=== PATIENT | female | born 1990 | race Caucasian/White ===

== ENCOUNTER 2017-08-23 15:22 | Emergency (ER) | payer MEDICAID ==
[2017-08-23] MEDS ORDERED: HYDROmorphone 0.5 MG/0.5 ML Syringe IVPUSH ONE (16:17)
[2017-08-23] MEDS ORDERED: Ondansetron 4 MG/2 ML SDV IVPUSH ONE (16:17)
--- NOTE | 2017-08-23 16:23 | EDM.PDOC ---
ED HPI GENERAL MEDICAL PROBLEM - General Chief Complaint: Abdominal Pain Stated Complaint: RI SIDE PAIN TEMP NAUSEA Time Seen by Provider: 08/23/17 16:10 Source of Information: Reports: Patient, Old Records History Limitations: Reports: No Limitations - History of Present Illness INITIAL COMMENTS - FREE TEXT/NARRATIVE: 27 yo female here with RLQ abdominal pain that began this morning and has progressed. Has nausea. No fever. Pain worse with movement. No hx of any abdominal surgeries. Has a pHx of ovarian cyst. No sexual activity since 07/20, has had periods since then. Onset: Today Onset Date: 08/23/17 Onset Time: 09:00 Duration: Hour(s): Location: Reports: Abdomen (RLQ) Quality: Reports: Ache Severity: Moderate Improves with: Reports: Rest Worsens with: Reports: Movement Context: Reports: Other (hx of cysts on ovary) Associated Symptoms: Reports: Nausea/Vomiting (no vomiting). 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: Reports: Other (see below) (none) Right Lower Abdomen Pain Score (Numeric/FACES): 8 - Related Data Allergies Allergy/AdvReac Type Severity Reaction Status Date / Time amoxicillin Allergy Rash Verified 08/23/17 16:05 Penicillins Allergy Rash Verified 08/23/17 16:04 Sulfa (Sulfonamide Allergy Rash Verified 08/23/17 16:04 Antibiotics) Home Meds: Home Meds Cholecalciferol (Vitamin D3) [Vitamin D] 2,000 unit PO DAILY 08/23/17 [History] Erythromycin Base [Erythromycin 0.5% Ophth Oint] 1 cm TOP BEDTIME 08/23/17 [ History] Escitalopram Oxalate 20 mg PO DAILY 08/23/17 [History] Past Medical History HEENT History: Reports: Other (See Below) Other HEENT History: Strep Genitourinary History: Reports: UTI, Recurrent, Other (See Below) Other Genitourinary History: Just getting over a UTI 07/01/16 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: Reports: 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 Musculoskeletal History: Reports: Fracture Other Musculoskeletal History: Left wrist Neurological History: Reports: Migraines Psychiatric History: Reports: Anxiety Dermatologic History: Reports: Other (See Below) Other Dermatologic History: Pucture wound right hand on Clindamyacin 06/30/16 - Infectious Disease History Infectious Disease History: Reports: Chicken Pox Social & Family History - Family History Family Medical History: Unobtainable - Tobacco Use Smoking Status *Q: Never Smoker Second Hand Smoke Exposure: No - Caffeine Use Caffeine Use: Reports: Coffee, Soda - Alcohol Use Days Per Week of Alcohol Use: 0 - Recreational Drug Use Recreational Drug Use: No - Living Situation & Occupation Living situation: Reports: Single Occupation: Employed ED ROS GENERAL - Review of Systems Review Of Systems: See Below Constitutional: Reports: Decreased Appetite HEENT: Reports: No Symptoms Respiratory: Reports: No Symptoms Cardiovascular: Reports: No Symptoms GI/Abdominal: Reports: Abdominal Pain (RLQ), Decreased Appetite, Nausea. Denies : Black Stool, Bloody Stool, Constipation, Diarrhea, Hematemesis, Hematochezia, Vomiting : Reports: No Symptoms Musculoskeletal: Reports: No Symptoms Skin: Reports: No Symptoms ED EXAM, GI/ABD - Physical Exam Exam: See Below Exam Limited By: No Limitations General Appearance: Alert, WD/WN, No Apparent Distress, Obese Eyes: Bilateral: Normal Appearance Ears: Normal External Exam, Normal Canal, Hearing Grossly Normal Nose: Normal Inspection, Normal Mucosa, No Blood Throat/Mouth: Normal Inspection, Normal Lips, Normal Oropharynx, Normal Voice, No Airway Compromise Head: Atraumatic, Normocephalic Neck: Normal Inspection Respiratory/Chest: No Respiratory Distress, Lungs Clear, Normal Breath Sounds, No Accessory Muscle Use Cardiovascular: Regular Rate, Rhythm GI/Abdominal Exam: Soft, No Distention, Rebound, Tender (RLQ), Abnormal Bowel Sounds (decreased) Back Exam: Normal Inspection. No: CVA Tenderness (R), CVA Tenderness (L) Extremities: Normal Inspection, Non-Tender, No Pedal Edema Neurological: Alert, Oriented, CN II-XII Intact, Normal Cognition, No Motor/ Sensory Deficits Psychiatric: Normal Affect, Normal Mood Skin Exam: Warm, Dry, Intact, Normal Color, No Rash Lymphatic: No Adenopathy Course - Vital Signs Last Recorded V/S: Last Vital Signs Temp 37.6 C 08/23/17 16:15 Pulse 91 08/23/17 16:15 Resp 15 08/23/17 16:15 BP 122/68 08/23/17 16:15 Pulse Ox 97 08/23/17 16:15 - Orders/Labs/Meds Orders: Active Orders 24 hr Category Date Time Status BASIC METABOLIC PANEL,BMP [CHEM] Stat Lab 08/23/17 16:17 Ordered CBC W/O DIFF,HEMOGRAM [HEME] Stat Lab 08/23/17 16:17 Ordered CRP [C-REACTIVE PROTEIN] [CHEM] Stat Lab 08/23/17 16:17 Ordered UA W/MICROSCOPIC [URIN] Stat Lab 08/23/17 16:17 Uncollected HYDROmorphone [Dilaudid] Med 08/23/17 16:17 Once 0.5 mg IVPUSH ONETIME ONE Lactated Ringers @ 150 MLS/HR(1,000ml) Med 08/23/17 16:30 Ordered Lactated Ringers [Ringers, Lactated] 1,000 ml IV ASDIRECTED Ondansetron [Zofran] Med 08/23/17 16:17 Once 4 mg IVPUSH ONETIME ONE Departure - Discharge Information Referrals: PCP,None [Primary Care Provider] - - My Orders Last 24 Hours: My Active Orders 08/23/17 16:17 BASIC METABOLIC PANEL,BMP [CHEM] Stat CBC W/O DIFF,HEMOGRAM [HEME] Stat CRP [C-REACTIVE PROTEIN] [CHEM] Stat UA W/MICROSCOPIC [URIN] Stat HYDROmorphone [Dilaudid] 0.5 mg IVPUSH ONETIME ONE Ondansetron [Zofran] 4 mg IVPUSH ONETIME ONE 08/23/17 16:30 Lactated Ringers @ 150 MLS/HR(1,000ml) Lactated Ringers [Ringers, Lactated] 1, 000 ml IV ASDIRECTED - Assessment/Plan Last 24 Hours: My Active Orders 08/23/17 16:17 BASIC METABOLIC PANEL,BMP [CHEM] Stat CBC W/O DIFF,HEMOGRAM [HEME] Stat CRP [C-REACTIVE PROTEIN] [CHEM] Stat UA W/MICROSCOPIC [URIN] Stat HYDROmorphone [Dilaudid] 0.5 mg IVPUSH ONETIME ONE Ondansetron [Zofran] 4 mg IVPUSH ONETIME ONE 08/23/17 16:30 Lactated Ringers @ 150 MLS/HR(1,000ml) Lactated Ringers [Ringers, Lactated] 1, 000 ml IV ASDIRECTED
[2017-08-23] MEDS ORDERED: Lactated Ringers 1,000 ML IV SCH (16:30)
--- NOTE | 2017-08-23 17:33 | EDM.PDOC ---
ED HPI GENERAL MEDICAL PROBLEM - General Chief Complaint: Abdominal Pain Stated Complaint: RI SIDE PAIN TEMP NAUSEA Time Seen by Provider: 08/23/17 16:10 Source of Information: Reports: Patient, RN History Limitations: Reports: Other (Old records in [place], not immediately available) - History of Present Illness INITIAL COMMENTS - FREE TEXT/NARRATIVE: 27 yo female had a child of this year. Was dx with gallstones while . Now for the past few days has not felt well. Has had epigastric and RUQ pain since 0300h today. Not aware of fever. Has had recurrent vomiting. No change in stools. Not . Work up for her biliary dz was in [place]. Onset: Today Onset Date: 08/23/17 Onset Time: 03:00 Duration: Hour(s):, Constant Location: Reports: Abdomen Quality: Reports: Ache, Pressure Severity: Moderate Improves with: Reports: None Worsens with: Reports: None Context: Reports: Other (known gallstones, recent childbirth.) Associated Symptoms: Reports: Nausea/Vomiting. 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: Other (see below) (none) Right Lower Abdomen Pain Score (Numeric/FACES): 8 - Related Data Allergies Allergy/AdvReac Type Severity Reaction Status Date / Time amoxicillin Allergy Rash Verified 08/23/17 16:05 Penicillins Allergy Rash Verified 08/23/17 16:04 Sulfa (Sulfonamide Allergy Rash Verified 08/23/17 16:04 Antibiotics) Home Meds: Home Meds Cholecalciferol (Vitamin D3) [Vitamin D] 2,000 unit PO DAILY 08/23/17 [History] Erythromycin Base [Erythromycin 0.5% Ophth Oint] 1 cm TOP BEDTIME 08/23/17 [ History] Escitalopram Oxalate 20 mg PO DAILY 08/23/17 [History] Past Medical History HEENT History: Reports: Other (See Below) Other HEENT History: Strep Genitourinary History: Reports: UTI, Recurrent, Other (See Below) Other Genitourinary History: Just getting over a UTI 07/01/16 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 Musculoskeletal History: Reports: Fracture Other Musculoskeletal History: Left wrist Neurological History: Reports: Migraines Psychiatric History: Reports: Anxiety Dermatologic History: Reports: Other (See Below) Other Dermatologic History: Pucture wound right hand on Clindamyacin 06/30/16 - Infectious Disease History Infectious Disease History: Reports: Chicken Pox Social & Family History - Family History Family Medical History: Unobtainable - Tobacco Use Smoking Status *Q: Never Smoker Second Hand Smoke Exposure: No - Caffeine Use Caffeine Use: Reports: Coffee, Soda - Alcohol Use Days Per Week of Alcohol Use: 0 - Recreational Drug Use Recreational Drug Use: No - Living Situation & Occupation Living situation: Reports: Single Occupation: Employed ED ROS GENERAL - Review of Systems Review Of Systems: See Below Constitutional: Reports: Decreased Appetite HEENT: Reports: No Symptoms Respiratory: Reports: No Symptoms Cardiovascular: Reports: No Symptoms Endocrine: Reports: No Symptoms GI/Abdominal: Reports: Abdominal Pain, Decreased Appetite, Nausea, Vomiting. Denies: Black Stool, Bloody Stool, Constipation, Diarrhea, Hematochezia, Melena : Reports: No Symptoms Musculoskeletal: Reports: No Symptoms Skin: Reports: No Symptoms Neurological: Reports: No Symptoms Psychiatric: Reports: No Symptoms ED EXAM, GI/ABD - Physical Exam Exam: See Below Exam Limited By: No Limitations General Appearance: Alert, WD/WN, Mild Distress Eyes: Bilateral: Normal Appearance Ears: Normal External Exam, Normal Canal, Hearing Grossly Normal, Normal TMs Nose: Normal Inspection, Normal Mucosa, No Blood Throat/Mouth: Normal Inspection, Normal Lips, Normal Oropharynx, Normal Voice, No Airway Compromise Head: Atraumatic, Normocephalic Neck: Normal Inspection, Supple, Non-Tender Respiratory/Chest: No Respiratory Distress, Lungs Clear, Normal Breath Sounds GI/Abdominal Exam: Soft, No Distention, Tender (epigastrium mainly.), Abnormal Bowel Sounds (decreased.) Back Exam: Normal Inspection. No: CVA Tenderness (R), CVA Tenderness (L) Extremities: Normal Inspection, Normal Range of Motion, Non-Tender, No Pedal Edema Neurological: Alert, Oriented, CN II-XII Intact, Normal Cognition, No Motor/ Sensory Deficits Psychiatric: Normal Affect, Normal Mood Skin Exam: Warm, Dry, Intact, Normal Color, No Rash Lymphatic: No Adenopathy Course - Vital Signs Last Recorded V/S: Last Vital Signs Temp 37.6 C 08/23/17 16:51 Pulse 91 08/23/17 16:51 Resp 15 08/23/17 16:51 BP 122/68 08/23/17 16:51 Pulse Ox 97 08/23/17 16:51 - Orders/Labs/Meds Orders: Active Orders 24 hr Category Date Time Status Abdomen Ltd [US] Stat Exams 08/23/17 17:24 Ordered Ketorolac [Toradol] Med 08/23/17 17:53 Once 30 mg IVPUSH ONETIME ONE Lactated Ringers [Ringers, Lactated] 1,000 ml Med 08/23/17 16:30 Active IV ASDIRECTED Potassium Chloride Med 08/23/17 17:53 Once 40 meq PO ONETIME ONE Medication Orders Lactated Ringer's (Ringers, Lactated) 1,000 mls @ 150 mls/hr IV ASDIRECTED IDRIS Last Admin: 08/23/17 16:46 Dose: 150 mls/hr Labs: Laboratory Tests 08/23/17 08/23/17 08/23/17 Range/Units 16:17 16:17 17:07 WBC 10.8 (4.5-11.0) K/uL RBC 4.86 (3.30-5.50) M/uL Hgb 13.4 D (12.0-15.0) g/dL Hct 41.5 (36.0-48.0) % MCV 85 (80-98) fL MCH 28 (27-31) pg MCHC 32 (32-36) % Plt Count 199 (150-400) K/uL Sodium 139 L (140-148) mmol/L Potassium 4.5 (3.6-5.2) mmol/L Chloride 102 (100-108) mmol/L Carbon Dioxide 26 (21-32) mmol/L Anion Gap 15.5 H (5.0-14.0) mmol/L BUN 24 H (7-18) mg/dL Creatinine 0.8 (0.6-1.0) mg/dL Est Cr Clr Drug Dosing 88.93 mL/min Estimated GFR (MDRD) > 60 (>60) Glucose 108 H (74-106) mg/dL Calcium 8.5 (8.5-10.1) mg/dL Alkaline Phosphatase 63 (46-116) U/L C-Reactive Protein 1.78 H (0.0-0.3) mg/dL Lipase 74 (73-393) U/L Urine Color Urine Appearance Urine pH (4.5-8.0) Ur Specific [place] (1.008-1.030) Urine Protein (NEGATIVE) mg/dL Urine Glucose (UA) (NEGATIVE) mg/dL Urine Ketones (NEGATIVE) mg/dL Urine Occult Blood (NEGATIVE) Urine Nitrite (NEGATIVE) Urine Bilirubin (NEGATIVE) Urine Urobilinogen (NORMAL) mg/dL Ur Leukocyte Esterase (NEGATIVE) Urine RBC (0-5) Urine WBC (0-5) Ur Epithelial Cells Amorphous Sediment Urine Bacteria Urine Mucus 08/23/ Range/Units 17:14 WBC (4.5-11.0) K/uL RBC (3.30-5.50) M/uL Hgb (12.0-15.0) g/dL Hct (36.0-48.0) % MCV (80-98) fL MCH (27-31) pg MCHC (32-36) % Plt Count (150-400) K/uL Sodium (140-148) mmol/L Potassium (3.6-5.2) mmol/L Chloride (100-108) mmol/L Carbon Dioxide (21-32) mmol/L Anion Gap (5.0-14.0) mmol/L BUN (7-18) mg/dL Creatinine (0.6-1.0) mg/dL Est Cr Clr Drug Dosing mL/min Estimated GFR (MDRD) (>60) Glucose (74-106) mg/dL Calcium (8.5-10.1) mg/dL Alkaline Phosphatase (46-116) U/L C-Reactive Protein (0.0-0.3) mg/dL Lipase (73-393) U/L Urine Color Yellow Urine Appearance Cloudy Urine pH 6.0 (4.5-8.0) Ur Specific [place] 1.020 (1.008-1.030) Urine Protein Negative (NEGATIVE) mg/dL Urine Glucose (UA) Normal (NEGATIVE) mg/dL Urine Ketones 15 H (NEGATIVE) mg/dL Urine Occult Blood Negative (NEGATIVE) Urine Nitrite Negative (NEGATIVE) Urine Bilirubin Small (NEGATIVE) Urine Urobilinogen 1 (NORMAL) mg/dL Ur Leukocyte Esterase Small (NEGATIVE) Urine RBC 0-5 (0-5) Urine WBC 10-20 H (0-5) Ur Epithelial Cells Moderate Amorphous Sediment Few Urine Bacteria Few Urine Mucus Numerous Meds: Medications Generic Name Dose Route Start Last Admin Trade Name Freq PRN Reason Stop Dose Admin Lactated Ringer's 1,000 mls @ 150 mls/hr 08/23/17 16:30 08/23/17 16:46 Ringers, Lactated IV 150 mls/hr ASDIRECTED IDRIS Administration Discontinued Medications Generic Name Dose Route Start Last Admin Trade Name Cinthia PRN Reason Stop Dose Admin Hydromorphone HCl 0.5 mg 08/23/17 16:17 08/23/17 16:48 Dilaudid IVPUSH 08/23/17 16:18 0.5 mg ONETIME ONE Administration Ondansetron HCl 4 mg 08/23/17 16:17 08/23/17 16:47 Zofran IVPUSH 08/23/17 16:18 4 mg ONETIME ONE Administration Departure - Departure Time of Disposition: 18:00 Disposition: Home, Self-Care 01 Condition: Fair Clinical Impression: RUQ abdominal pain, Hypokalemia Nausea & vomiting Qualifiers: Vomiting type: unspecified Vomiting Intractability: non-intractable Qualified Code(s): R11.2 - Nausea with vomiting, unspecified - Discharge Information Referrals: PCP,None [Primary Care Provider] - Forms: ED Department Discharge - My Orders Last 24 Hours: My Active Orders 08/23/17 16:30 Lactated Ringers [Ringers, Lactated] 1,000 ml IV ASDIRECTED 08/23/17 17:24 [facility] [US] Stat 08/23/17 17:53 Ketorolac [Toradol] 30 mg IVPUSH ONETIME ONE Potassium Chloride 40 meq PO ONETIME ONE - Assessment/Plan Last 24 Hours: My Active Orders 08/23/17 16:30 Lactated Ringers [Ringers, Lactated] 1,000 ml IV ASDIRECTED 08/23/17 17:24 [facility] [[place]] Stat 08/23/17 17:53 Ketorolac [Toradol] 30 mg IVPUSH ONETIME ONE Potassium Chloride 40 meq PO ONETIME ONE
[2017-08-23] MEDS ORDERED: Ketorolac 30 MG/ML SDV IVPUSH ONE (17:53)
[2017-08-23] MEDS ORDERED: Potassium Chloride 10 MEQ Cap.ER PO ONE (17:53)
[2017-08-23 18:28] VITALS: BP 136/74
== END 2017-08-23 18:56 | disposition home or self-care (01) ==
LOC: JP.ED 15:22
DX: O99.89 Other specified diseases and conditions complicating pregnancy, childbirth and the puerperium (principal); R10.11 Right upper quadrant pain; R10.13 Epigastric pain; R10.31 Right lower quadrant pain; E87.6 Hypokalemia; R11.2 Nausea with vomiting, unspecified; Z79.899 Other long term (current) drug therapy; Z88.1 Allergy status to other antibiotic agents; Z88.0 Allergy status to penicillin; Z88.2 Allergy status to sulfonamides
CPT/HCPCS: 36415; 76705; 80048; 81001; 83690; 84075; 85027; 86140; 96361; 96374; 96375; 99284; A9270; J1170; J1885; J2405; J7120

== ENCOUNTER 2017-12-24 19:17 | Emergency (ER) | payer MEDICAID ==
[2017-12-24 20:28] VITALS: BP 142/88
[2017-12-24] MEDS ORDERED: Ketorolac 60 MG/2 ML SDV IM ONE (20:44)
--- NOTE | 2017-12-24 20:47 | EDM.PDOC ---
ED HPI GENERAL MEDICAL PROBLEM - General Chief Complaint: Lower Extremity Injury/Pain Stated Complaint: HURT FOOT Time Seen by Provider: 12/24/17 20:42 Source of Information: Reports: Patient, RN Notes Reviewed History Limitations: Reports: No Limitations - History of Present Illness INITIAL COMMENTS - FREE TEXT/NARRATIVE: 27-year-old female presents emergency department day complaint of right foot pain she states he's running and flip-flops slipped on wet grass now has experiencing pain over her great toe - Related Data Allergies Allergy/AdvReac Type Severity Reaction Status Date / Time acetaminophen [From Vicodin] Allergy Nausea and Verified 12/24/17 20:40 Vomiting amoxicillin Allergy Rash Verified 12/24/17 20:29 hydrocodone [From Vicodin] Allergy Nausea and Verified 12/24/17 20:40 Vomiting Penicillins Allergy Rash Verified 12/24/17 20:29 Sulfa (Sulfonamide Allergy Rash Verified 12/24/17 20:29 Antibiotics) Home Meds: Home Meds Cholecalciferol (Vitamin D3) [Vitamin D] 2,000 unit PO DAILY 08/23/17 [History] Escitalopram Oxalate 20 mg PO DAILY 08/23/17 [History] lamoTRIgine [Lamictal] 50 mg PO DAILY 12/24/17 [History] Past Medical History HEENT History: Reports: Impaired Vision, Other (See Below) Other HEENT History: Strep Genitourinary History: Reports: UTI, Recurrent, Other (See Below) Other Genitourinary History: Just getting over a UTI 07/01/16 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: 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 Musculoskeletal History: Reports: Fracture Other Musculoskeletal History: Left wrist Neurological History: Reports: Migraines Psychiatric History: Reports: Anxiety Dermatologic History: Reports: Other (See Below) Other Dermatologic History: Pucture wound right hand on Clindamyacin 06/30/16 - Infectious Disease History Infectious Disease History: Reports: Chicken Pox Social & Family History - Family History Family Medical History: Unobtainable - Tobacco Use Smoking Status *Q: Never Smoker Second Hand Smoke Exposure: No - Caffeine Use Caffeine Use: Reports: Soda - Alcohol Use Days Per Week of Alcohol Use: 0 - Recreational Drug Use Recreational Drug Use: No - Living Situation & Occupation Living situation: Reports: Single Occupation: Employed Review of Systems - Review of Systems Review Of Systems: See Below Constitutional: Reports: No Symptoms Musculoskeletal: Reports: Foot Pain Skin: Reports: No Symptoms Neurological: Reports: No Symptoms ED EXAM, GENERAL - Physical Exam Exam: See Below Free Text/Narrative:: Examination of the right foot I don't appreciate any erythema or edema she is tender to palpation over the first metacarpal of the great toe, pedal pulse is + 2 sensation is intact Exam Limited By: No Limitations General Appearance: Alert, WD/WN, No Apparent Distress Respiratory/Chest: No Respiratory Distress Course - Vital Signs Last Recorded V/S: Last Vital Signs Temp 97.7 F 12/24/17 20:33 Pulse 71 12/24/17 20:33 Resp 14 12/24/17 20:33 BP 142/88 H 12/24/17 20:33 Pulse Ox 99 12/24/17 20:33 - Orders/Labs/Meds Orders: Active Orders 24 hr Category Date Time Status Foot Comp Min 3V Rt [CR] Stat Exams 12/24/17 20:44 Ordered Meds: Medications Discontinued Medications Generic Name Dose Route Start Last Admin Trade Name Cinthia PRN Reason Stop Dose Admin Ketorolac Tromethamine 60 mg 12/24/17 20:44 Toradol IM 12/24/17 20:45 ONETIME ONE Departure - Departure Time of Disposition: 21:13 Disposition: Home, Self-Care 01 Condition: Good Clinical Impression: Right foot pain - Discharge Information Referrals: PCP,None [Primary Care Provider] - Forms: ED Department Discharge Additional Instructions: Use Tylenol and Motrin as needed for pain control, continue to use the hard soled shoe for comfort Please followup with your primary care provider in 3-5 days if not better, please call return to the emergency department with worsening of symptoms. - My Orders Last 24 Hours: My Active Orders 12/24/17 20:44 Foot Comp Min 3V Rt [CR] Stat - Assessment/Plan Last 24 Hours: My Active Orders 12/24/17 20:44 Foot Comp Min 3V Rt [CR] Stat Plan: Assessment Acuity = acute Site and laterality = right foot sprain Etiology = secondary to twisting injury Manifestations = none Location of injury = Home Lab values = foot x-ray I did review films myself I cannot appreciate any acute process, the official read from radiology is pending Plan I did review films with her recommend nonsteroidal anti-inflammatories for pain control, a hard soled shoe, follow-up with primary care in 3-5 days if no improvement This note was dictated using [employer] voice recognition software please call with any questions on syntax or vania.
--- NOTE | 2017-12-25 08:39 | CR ---
Foot Comp Min 3V Rt HISTORY: Trauma over great toe, pain FINDINGS: No acute fracture or dislocation is identified. Bony architecture and joint spaces are preserved. S oft tissues are unremarkable. IMPRESSION: No acute right foot abnormality identified.
== END 2017-12-24 21:56 | disposition home or self-care (01) ==
LOC: JP.ED 19:17
DX: S93.601A Unspecified sprain of right foot, initial encounter (principal); Z88.6 Allergy status to analgesic agent; Z88.1 Allergy status to other antibiotic agents; Z88.0 Allergy status to penicillin; Z88.2 Allergy status to sulfonamides; Z79.899 Other long term (current) drug therapy; X50.9XXA Other and unspecified overexertion or strenuous movements or postures, initial encounter
CPT/HCPCS: 73630; 96372; 99284; J1885

== ENCOUNTER 2019-01-02 07:00 | Emergency (ER) | payer MEDICAID ==
[2019-01-02] MEDS ORDERED: Ketorolac 60 MG/2 ML SDV IM ONE (07:25)
[2019-01-02] MEDS ORDERED: Ondansetron 4 MG Tab.DIS PO ONE (07:26)
[2019-01-02] MEDS ORDERED: HYDROmorphone 1 MG/ML Syringe IM ONE (07:31)
--- NOTE | 2019-01-02 07:36 | EDM.PDOC ---
ED HPI GENERAL MEDICAL PROBLEM - General Chief Complaint: Abdominal Pain Stated Complaint: VOMITING Time Seen by Provider: 01/02/19 07:20 Source of Information: Reports: Patient, Old Records, RN History Limitations: Reports: No Limitations - History of Present Illness INITIAL COMMENTS - FREE TEXT/NARRATIVE: 28 yo female presents with L flank and L sided abdominal pain that began about 45 min before arrival. Has nausea and vomiting. No fever. No dysuria or hematuria. Has no hx of kidney stones, but does have a hx of ovarian cysts(this hurts more than her cysts). Onset: Today, Sudden Onset Date: 01/02/19 Onset Time: 06:35 Duration: Minutes:, Constant Location: Reports: Abdomen, Back Quality: Reports: Stabbing Severity: Severe Improves with: Reports: None Worsens with: Reports: None Context: Reports: Other (See HPI) Associated Symptoms: Reports: Nausea/Vomiting. Denies: Fever/Chills Treatments ENT SURGEON: Reports: Other (see below) (none) Left Middle Abdominal Pain Score (Numeric/FACES): 10 - Related Data Allergies Allergy/AdvReac Type Severity Reaction Status Date / Time acetaminophen [From Vicodin] Allergy Nausea and Verified 12/24/17 20:40 Vomiting amoxicillin Allergy Rash Verified 12/24/17 20:29 hydrocodone [From Vicodin] Allergy Nausea and Verified 12/24/17 20:40 Vomiting Penicillins Allergy Rash Verified 12/24/17 20:29 Sulfa (Sulfonamide Allergy Rash Verified 12/24/17 20:29 Antibiotics) Home Meds: Home Meds Cholecalciferol (Vitamin D3) [Vitamin D] 2,000 unit PO DAILY 08/23/17 [History] Escitalopram Oxalate 20 mg PO DAILY 08/23/17 [History] lamoTRIgine [Lamictal] 50 mg PO DAILY 12/24/17 [History] Past Medical History HEENT History: Reports: Impaired Vision, Other (See Below) Other HEENT History: Strep Genitourinary History: Reports: UTI, Recurrent, Other (See Below) Other Genitourinary History: Just getting over a UTI 07/01/16 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: 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 Musculoskeletal History: Reports: Fracture Other Musculoskeletal History: Left wrist Neurological History: Reports: Migraines Psychiatric History: Reports: Anxiety Dermatologic History: Reports: Other (See Below) Other Dermatologic History: Pucture wound right hand on Clindamyacin 06/30/16 - Infectious Disease History Infectious Disease History: Reports: Chicken Pox Social & Family History - Family History Family Medical History: Unobtainable - Tobacco Use Smoking Status *Q: Never Smoker - Caffeine Use Caffeine Use: Reports: Soda - Recreational Drug Use Recreational Drug Use: No - Living Situation & Occupation Living situation: Reports: Single Occupation: Employed ED ROS GENERAL - Review of Systems Review Of Systems: See Below Constitutional: Reports: No Symptoms HEENT: Reports: No Symptoms Respiratory: Reports: No Symptoms Cardiovascular: Reports: No Symptoms Endocrine: Reports: No Symptoms GI/Abdominal: Reports: Abdominal Pain (left sided), Nausea, Vomiting. Denies: Anorexia, Black Stool, Bloody Stool, Constipation, Diarrhea, Distension, Flatus , Hematemesis, Hematochezia, Melena : Reports: Flank Pain (left). Denies: Dysuria, Frequency, Hematuria, Urgency , Urinary Retention Musculoskeletal: Reports: No Symptoms Skin: Reports: No Symptoms Psychiatric: Reports: No Symptoms ED EXAM, GI/ABD - Physical Exam Exam: See Below Exam Limited By: No Limitations General Appearance: Alert, WD/WN, No Apparent Distress, Obese Eyes: Bilateral: Normal Appearance Ears: Normal External Exam, Hearing Grossly Normal Nose: Normal Inspection, No Blood Throat/Mouth: Normal Inspection, Normal Lips, Normal Oropharynx, Normal Voice, No Airway Compromise Head: Atraumatic, Normocephalic Neck: Normal Inspection Respiratory/Chest: No Respiratory Distress, Lungs Clear, Normal Breath Sounds, No Accessory Muscle Use Cardiovascular: Regular Rate, Rhythm, No Edema GI/Abdominal Exam: Normal Bowel Sounds, Soft, Non-Tender, No Distention Back Exam: Normal Inspection. No: CVA Tenderness (R), CVA Tenderness (L) Extremities: Normal Inspection, Normal Range of Motion, Non-Tender, No Pedal Edema Neurological: Alert, Oriented, CN II-XII Intact, Normal Cognition, No Motor/ Sensory Deficits Psychiatric: Normal Affect, Normal Mood Skin Exam: Warm, Dry, Intact, Normal Color, No Rash Course - Vital Signs Last Recorded V/S: Last Vital Signs Temp 35.9 C 01/02/19 07:20 Pulse 93 01/02/19 07:20 Resp 16 01/02/19 07:20 BP 115/73 01/02/19 08:08 Pulse Ox 97 01/02/19 07:20 - Orders/Labs/Meds Orders: Active Orders 24 hr Category Date Time Status CULTURE URINE [RM] Stat Lab 01/02/19 09:45 Received Labs: Laboratory Tests 01/02/19 Range/Units 09:17 Urine Color Yellow Urine Appearance Cloudy Urine pH 5.0 (4.5-8.0) Ur Specific [place] 1.025 (1.008-1.030) Urine Protein 30 H (NEGATIVE) mg/dL Urine Glucose (UA) Normal (NEGATIVE) mg/dL Urine Ketones Negative (NEGATIVE) mg/dL Urine Occult Blood Moderate (NEGATIVE) Urine Nitrite Negative (NEGATIVE) Urine Bilirubin Negative (NEGATIVE) Urine Urobilinogen Normal (NORMAL) mg/dL Ur Leukocyte Esterase Moderate (NEGATIVE) Urine RBC 5-10 H (0-5) Urine WBC 5-10 H (0-5) Ur Epithelial Cells Moderate Amorphous Sediment Few Urine Bacteria Moderate Urine Mucus Moderate Meds: Medications Discontinued Medications Generic Name Dose Route Start Last Admin Trade Name Freq PRN Reason Stop Dose Admin Hydromorphone HCl 1 mg 01/02/19 07:31 01/02/19 07:36 Dilaudid IM 01/02/19 07:32 1 mg ONETIME ONE Administration Ketorolac Tromethamine 60 mg 01/02/19 07:25 01/02/19 07:35 Toradol IM 01/02/19 07:26 60 mg ONETIME ONE Administration Ondansetron HCl 4 mg 01/02/19 07:26 01/02/19 07:35 Zofran Odt PO 01/02/19 07:27 4 mg ONETIME ONE Administration - Radiology Interpretation Free Text/Narrative:: CT abd/pelvis no contrast-negative (still having a small amt of pain.) CT Results Date: 01/02/19 CT Results Time: 11:05 Departure - Departure Time of Disposition: 11:15 Disposition: Home, Self-Care 01 Condition: Fair Clinical Impression: Abdominal pain Qualifiers: Abdominal location: left upper quadrant Qualified Code(s): R10.12 - Left upper quadrant pain - Discharge Information *PRESCRIPTION DRUG MONITORING PROGRAM REVIEWED*: No *COPY OF PRESCRIPTION DRUG MONITORING REPORT IN PATIENT CROW: No Instructions: Abdominal Pain, Adult, [id number] Referrals: Belen García MD [Primary Care Provider] - Forms: ED Department Discharge Additional Instructions: Eat a light diet today. Drink ample fluids. Take Zofran as needed for nausea relief and either acetaminophen or [place] for pain relief. Add ibuprofen 600 mg every 6 hrs for added pain relief. Take Amoxicillin 875 mg every 8 hrs for infection. Recheck in the clinic tomorrow, call for an appt. No driving for the next 6 hrs. - My Orders Last 24 Hours: My Active Orders 01/02/19 09:45 CULTURE URINE [RM] Stat - Assessment/Plan Last 24 Hours: My Active Orders 01/02/19 09:45 CULTURE URINE [RM] Stat
[2019-01-02 08:09] VITALS: BP 115/73
--- NOTE | 2019-01-02 10:46 | CRLCT ---
INDICATION: Left flank pain and left abdominal pain. COMPARISON: None. TECHNIQUE: CT abdomen and pelvis without intravenous or oral contrast; coronal and sagittal reformats. FINDINGS: A 4.4 x 2.9 cm pericardial cyst at the right cardiophrenic angle. Small subpleural noncalcified nodular densities lung bases bilateral more on the left. No evidence of pleural effusion. No focal hepatic or splenic pathology. No pancreatic pathology. Gallbladder is unremarkable. No adrenal pathology. No kidney stones or obstructive uropathy. No retroperitoneal lymphadenopathy. No evidence of abdominal or pelvic ascites. Normal appendix. CT study of the pelvis is unremarkable. Impression: 1. Small subpleural noncalcified nodules lung bases. 2. Pericardial cyst. 3. No kidney stones or obstructive uropathy. 4. Normal appendix. 5. Negative unenhanced CT abdomen and pelvis. Please note that all CT scans at this facility use dose modulation, iterative reconstruction, and/or weight-based dosing when appropriate to reduce radiation dose to as low as reasonably achievable. Dictated by Sanket Parker MD @ Jan 02 2019 10:39AM Signed by Dr. Sanket Parker @ Jan 02 2019 10:45AM
== END 2019-01-02 11:26 | disposition home or self-care (01) ==
LOC: JP.ED 07:00
DX: R10.12 Left upper quadrant pain (principal); F41.9 Anxiety disorder, unspecified; Z79.899 Other long term (current) drug therapy; Z88.6 Allergy status to analgesic agent; Z88.1 Allergy status to other antibiotic agents; Z88.0 Allergy status to penicillin; Z88.2 Allergy status to sulfonamides
CPT/HCPCS: 74176; 81001; 87086; 96372; 99284; A9270; J1170; J1885

== ENCOUNTER 2019-01-24 17:08 | Emergency (ER) | payer MEDICAID ==
[2019-01-24] MEDS ORDERED: Sodium Chloride 0.9% 10 ML Syringe FLUSH PRN (18:40)
--- NOTE | 2019-01-24 19:10 | EDM.PDOC ---
ED HPI GENERAL MEDICAL PROBLEM - General Chief Complaint: Flank Pain Stated Complaint: NAUSEA BACK UP TO NECK Time Seen by Provider: 01/24/19 18:00 Source of Information: Reports: Patient, Family History Limitations: Reports: No Limitations - History of Present Illness INITIAL COMMENTS - FREE TEXT/NARRATIVE: Alert 28-year-old female presents with abrupt onset of left-sided flank pain, abdominal pain and chest pain. Patient states the symptoms started abruptly at approximately 3:30 this afternoon. Patient ate within 30 minutes of onset of symptoms. She contacted her mother and her significant other by 4pm, patient has been vomiting due to pain and unable to keep fluids down due to pain. Patient states the pain involves her entire back even light touch causes discomfort. Epigastric discomfort in her abdomen which goes to her left mid abdomen. Next menstrual period is due in one week based on her pills. Patient states she had similar symptoms last month, she had blood in her urine and was given an antibiotic for urinary tract infection. Her symptoms resolved until today. - Related Data Allergies Allergy/AdvReac Type Severity Reaction Status Date / Time acetaminophen [From Vicodin] Allergy Nausea and Verified 01/24/19 17:57 Vomiting amoxicillin Allergy Rash Verified 01/24/19 17:57 hydrocodone [From Vicodin] Allergy Nausea and Verified 01/24/19 17:57 Vomiting oxycodone Allergy Change Verified 01/24/19 17:57 Mental Status Penicillins Allergy Rash Verified 01/24/19 17:57 Sulfa (Sulfonamide Allergy Rash Verified 01/24/19 17:57 Antibiotics) Home Meds: Home Meds Cholecalciferol (Vitamin D3) [Vitamin D] 2,000 unit PO DAILY 08/23/17 [History] Escitalopram Oxalate 20 mg PO DAILY 08/23/17 [History] lamoTRIgine [Lamictal] 50 mg PO DAILY 12/24/17 [History] Ondansetron [Zofran ODT] 4 mg PO TID PRN #7 tab.dis 01/02/19 [Rx] Omeprazole Magnesium [Prilosec Otc] 20 mg PO DAILY 30 Days #30 tablet [Rx] Spironolactone [Aldactone] 1 tab PO DAILY 01/24/19 [History] Sucralfate [Carafate] 1 gm PO QIDACANDBED 10 Days #40 cup 01/24/19 [Rx] metFORMIN [Glucophage] 2 tab PO BID 01/24/19 [History] Past Medical History HEENT History: Reports: Impaired Vision, Other (See Below) Other HEENT History: Strep Genitourinary History: Reports: UTI, Recurrent, Other (See Below) Other Genitourinary History: Just getting over a UTI 07/01/16 [employer] History: Reports: 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 Musculoskeletal History: Reports: Fracture Other Musculoskeletal History: Left wrist Neurological History: Reports: Migraines Psychiatric History: Reports: Anxiety Dermatologic History: Reports: Other (See Below) Other Dermatologic History: Pucture wound right hand on Clindamyacin 06/30/16 - Infectious Disease History Infectious Disease History: Reports: Chicken Pox Social & Family History - Family History Family Medical History: Noncontributory (Mother added history) Other GI Family History: Sclerosing Cholangitis (mother) - Tobacco Use Smoking Status *Q: Never Smoker - Caffeine Use Caffeine Use: Reports: Soda - Living Situation & Occupation Living situation: Reports: Single Occupation: Employed ED ROS GENERAL - Review of Systems Review Of Systems: ROS reveals no pertinent complaints other than HPI. Constitutional: Reports: Malaise Cardiovascular: Reports: Chest Pain GI/Abdominal: Reports: Abdominal Pain, Nausea, Vomiting ED EXAM, GENERAL - Physical Exam Exam: See Below Exam Limited By: No Limitations General Appearance: Alert, WD/WN, Mild Distress Eye Exam: Bilateral Eye: EOMI, PERRL Ears: Normal External Exam, Normal Canal, Hearing Grossly Normal, Normal TMs Ear Exam: Bilateral Ear: Auricle Normal, Canal Normal, TM normal Nose: Normal Inspection, Normal Mucosa, No Blood Throat/Mouth: Normal Inspection, Normal Lips, Normal Teeth, Normal Gums, Normal Oropharynx, Normal Voice, No Airway Compromise Head: Normocephalic Neck: Normal Inspection, Supple, Non-Tender, Full Range of Motion Respiratory/Chest: No Respiratory Distress, Lungs Clear, Normal Breath Sounds, No Accessory Muscle Use, Chest Non-Tender, Other (significant pain to palpation entire back without rashes noted ) Cardiovascular: Normal Peripheral Pulses, Regular Rate, Rhythm GI/Abdominal: Normal Bowel Sounds (Limited due to body habitus ), Soft Back Exam: Normal Inspection, Full Range of Motion, NT Extremities: Normal Inspection, Normal Range of Motion, Non-Tender, Normal Capillary Refill, No Pedal Edema Neurological: Alert, Oriented, CN II-XII Intact, Normal Cognition, Normal Gait, Normal Reflexes, No Motor/Sensory Deficits Psychiatric: Normal Affect, Normal Mood Skin Exam: Warm, Dry, Intact, Normal Color, No Rash Course - Vital Signs Last Recorded V/S: Last Vital Signs Temp 36.8 C 01/24/19 18:07 Pulse 71 01/24/19 20:08 Resp 16 01/24/19 20:08 BP 130/73 01/24/19 20:08 Pulse Ox 97 01/24/19 20:08 - Orders/Labs/Meds Orders: Active Orders 24 hr Category Date Time Status Peripheral IV Care [RC] . DIRECTED Care 01/24/19 18:40 Active Strain Urine [RC] ASDIRECTED Care 01/24/19 19:55 Active Ondansetron [Zofran] Med 01/24/19 19:38 Active 4 mg IVPUSH Q4H PRN Sodium Chloride 0.9% [Normal Saline] 1,000 ml Med 01/24/19 19:45 Active IV ASDIRECTED Sodium Chloride 0.9% [Saline Flush] Med 01/24/19 18:40 Active 10 ml FLUSH ASDIRECTED PRN Peripheral IV Insertion Adult [OM.PC] Routine Oth 01/24/19 18:40 Ordered Medication Orders Sodium Chloride (Normal Saline) 1,000 mls @ 1,000 mls/hr IV ASDIRECTED IDRIS Last Admin: 01/24/19 20:18 Dose: 1,000 mls/hr Ondansetron HCl (Zofran) 4 mg IVPUSH Q4H PRN PRN Reason: Nausea/Vomiting Last Admin: 01/24/19 20:21 Dose: 4 mg Sodium Chloride (Saline Flush) 10 ml FLUSH ASDIRECTED PRN PRN Reason: Keep Vein Open Last Admin: 01/24/19 20:19 Dose: 10 ml Labs: Laboratory Tests 01/24/19 01/24/19 01/24/19 Range/Units 18:39 18:39 18:39 WBC 10.0 (4.5-11.0) K/uL RBC 4.43 (3.30-5.50) M/uL Hgb 12.8 (12.0-15.0) g/dL Hct 39.2 (36.0-48.0) % MCV 89 (80-98) fL MCH 29 (27-31) pg MCHC 33 (32-36) % Plt Count 274 (150-400) K/uL Neut % (Auto) 58 (36-66) % Lymph % (Auto) 30 (24-44) % [place] % (Auto) 9 H (2-6) % Eos % (Auto) 3 (2-4) % Baso % (Auto) 0 (0-1) % D-Dimer, Quantitative 207 (0.0-400.0) ng/mL Sodium 139 L (140-148) mmol/L Potassium 4.2 (3.6-5.2) mmol/L Chloride 103 (100-108) mmol/L Carbon Dioxide 29 (21-32) mmol/L Anion Gap 11.2 (5.0-14.0) mmol/L BUN 14 (7-18) mg/dL Creatinine 0.9 (0.6-1.0) mg/dL Est Cr Clr Drug Dosing 78.36 mL/min Estimated GFR (MDRD) > 60 (>60) Glucose 102 (74-106) mg/dL Calcium 9.1 (8.5-10.1) mg/dL Total Bilirubin 0.2 (0.2-1.0) mg/dL AST 50 H D (15-37) U/L ALT 40 (12-78) U/L Alkaline Phosphatase 65 (46-116) U/L Total Protein 6.9 (6.4-8.2) g/dL Albumin 3.0 L (3.4-5.0) g/dL Globulin 3.9 H (2.3-3.5) g/dL Albumin/Globulin Ratio 0.8 L (1.2-2.2) Lipase (73-393) U/L Urine Color Urine Appearance Urine pH (4.5-8.0) Ur Specific [place] (1.008-1.030) Urine Protein (NEGATIVE) mg/dL Urine Glucose (UA) (NEGATIVE) mg/dL Urine Ketones (NEGATIVE) mg/dL Urine Occult Blood (NEGATIVE) Urine Nitrite (NEGATIVE) Urine Bilirubin (NEGATIVE) Urine Urobilinogen (NORMAL) mg/dL Ur Leukocyte Esterase (NEGATIVE) Urine RBC (0-5) Urine WBC (0-5) Ur Epithelial Cells Amorphous Sediment Urine Bacteria Urine Mucus Urine HCG, Qual 0501/24/19 01/24/19 Range/Units 18:39 19:23 19:23 WBC (4.5-11.0) K/uL RBC (3.30-5.50) M/uL Hgb (12.0-15.0) g/dL Hct (36.0-48.0) % MCV (80-98) fL MCH (27-31) pg MCHC (32-36) % Plt Count (150-400) K/uL Neut % (Auto) (36-66) % Lymph % (Auto) (24-44) % [place] % (Auto) (2-6) % Eos % (Auto) (2-4) % Baso % (Auto) (0-1) % D-Dimer, Quantitative (0.0-400.0) ng/mL Sodium (140-148) mmol/L Potassium (3.6-5.2) mmol/L Chloride (100-108) mmol/L Carbon Dioxide (21-32) mmol/L Anion Gap (5.0-14.0) mmol/L BUN (7-18) mg/dL Creatinine (0.6-1.0) mg/dL Est Cr Clr Drug Dosing mL/min Estimated GFR (MDRD) (>60) Glucose (74-106) mg/dL Calcium (8.5-10.1) mg/dL Total Bilirubin (0.2-1.0) mg/dL AST (15-37) U/L ALT (12-78) U/L Alkaline Phosphatase (46-116) U/L Total Protein (6.4-8.2) g/dL Albumin (3.4-5.0) g/dL Globulin (2.3-3.5) g/dL Albumin/Globulin Ratio (1.2-2.2) Lipase 120 (73-393) U/L Urine Color Yellow Urine Appearance Slightly cloudy Urine pH 7.0 (4.5-8.0) Ur Specific [place] 1.015 (1.008-1.030) Urine Protein Negative (NEGATIVE) mg/dL Urine Glucose (UA) Normal (NEGATIVE) mg/dL Urine Ketones Negative (NEGATIVE) mg/dL Urine Occult Blood Moderate (NEGATIVE) Urine Nitrite Negative (NEGATIVE) Urine Bilirubin Negative (NEGATIVE) Urine Urobilinogen Normal (NORMAL) mg/dL Ur Leukocyte Esterase Small (NEGATIVE) Urine RBC Not seen (0-5) Urine WBC 5-10 H (0-5) Ur Epithelial Cells Few Amorphous Sediment Numerous Urine Bacteria Moderate Urine Mucus Not seen Urine HCG, Qual Negative Meds: Medications Generic Name Dose Route Start Last Admin Trade Name Freq PRN Reason Stop Dose Admin Sodium Chloride 1,000 mls @ 1,000 mls/hr 01/24/19 19:45 01/24/19 20:18 Normal Saline IV 1,000 mls/hr ASDIRECTED IDRIS Administration Ondansetron HCl 4 mg 01/24/19 19:38 01/24/19 20:21 Zofran IVPUSH 4 mg Q4H PRN Administration Nausea/Vomiting Sodium Chloride 10 ml 01/24/19 18:40 01/24/19 20:19 Saline Flush FLUSH 10 ml ASDIRECTED PRN Administration Keep Vein Open Discontinued Medications Generic Name Dose Route Start Last Admin Trade Name Freq PRN Reason Stop Dose Admin Ketorolac Tromethamine 30 mg 01/24/19 19:38 01/24/19 20:19 Toradol IVPUSH 01/24/19 19:39 30 mg ONETIME ONE Administration - Re-Assessments/Exams Free Text/Narrative Re-Assessment/Exam: 01/24/19 19:50 Chart reviewed: Patient had a CT abdomen and pelvis earlier this month for similar symptoms noting subpleural noncalcified nodules in lung bases,. Cardial cyst, no kidney stones or obstructive uropathy, normal appendix, negative CT abdomen and pelvis. August 2017 patient had a ultrasound for abdominal pain vomiting which seems fairly similar at that point in time she was noted to have moderate diffuse fatty liver and gallbladder was slightly distended with a nodular defect arising from the gallbladder while likely polyp versus nonmobile stone patient, bile duct was normal diameter 2.1 reassessment of the polyp was recommended in 4-6 months to ensure stability of growth. Laboratory studies reviewed patient has no acute concerning findings on her blood work. Urinalysis shows no signs of infection slightly contaminated which is similar to previous study. Patient's pain seems to be improved without medication. IV access will be obtained Toradol and Zofran are given for discomfort along with a liter of fluids. Patient is educated regarding findings both during recent ER visits on along with imaging and the test results today. I feel follow-up with her primary care provider with the recommended. Patient's symptoms are fairly classic for renal versus biliary colic. Patient be given a strainer to strain her urine to see if crystals are obtained to help with diagnosis. Repeat ultrasound and consult with general surgery recommended for nonmobile nodular filling defect in the gallbladder noted in 2017 and possible gallbladder concerns. Departure - Departure Time of Disposition: 20:42 Disposition: Home, Self-Care 01 Condition: Good Clinical Impression: Ureteric colic, Biliary colic symptom, Fatty liver - Discharge Information Prescriptions: Omeprazole Magnesium [Prilosec Otc] 20 mg PO DAILY 30 Days #30 tablet. Sucralfate [Carafate] 1 gm PO QIDACANDBED 10 Days #40 cup Instructions: Cholelithiasis, Kidney Stones Referrals: Belen García MD [Primary Care Provider] - Forms: ED Department Discharge Additional Instructions: 1. Clear Liquid Diet x 48 hours then to bland advance as tolerated. Increase Fluid intake. Pain should resolve in 48-72 hours. 2. Prilosec 20mg daily to decreased stomach acid and allow stomach to heal. 3. Zofran 4mg ODT prn nausea to prevent vomiting and dehydration. 4. Ibuprofen or Naproxen (with food) every 6-8hours for inflammation, pain and swelling. 5. Tylenol (Acetaminophen) every 6-8hours for mild pain OR 6. Call PCP to discuss Biliary Colic gallstones/Gallbladder Polyp and possible renal colic causing your symptoms. 7. Strain urine if stones/sand present bring to clinic for analysis. 8. You may need further evaluation with a General Surgeon for possible removal of gallbladder if continue pain and concerns. Discharge Instructions Biliary Colic You have been seen today for biliary colic. Biliary colic is the pain that happens when gallstones block the normal flow of bile from the gallbladder. It usually is a steady or crampy pain in the upper abdomen (belly), most often under the right side of the rib cage where the gallbladder is. Sometimes you get pain from the gallbladder in your back or shoulder. It is common to have nausea (sick to stomach) and vomiting (throwing up) with biliary colic. Bile is a liquid the body makes to help with digesting fat. It is made by the liver and stored in the gallbladder and released from the gall bladder when you eat fatty foods. Gallstones can form for a variety of reasons. Risk factors for gallstones include being female, having a family history of gallstones, being older, being or having been , having diabetes, having rapid weight loss, and others. Once gallstones form, surgeons usually tell you to have your gallbladder removed. There is medicine that can dissolve gallstones, but it can be unpleasant to take, and gallstones tend to come back when you quit taking the medicine. Your regular provider can help decide on the right treatment for you, and may refer you to a surgeon to discuss whether surgery is right in your case. Complications of gallstones include infection, jaundice, inflammation of the pancreas, and rupture of the gallbladder. One of these complications will happen to about one out of every four patients with gallstones over the next 10- 20 years if they are not treated. Please follow-up as instructed by your provider today. Return to the clinic or Local Emergency Department if you develop: Fever greater than 100.5F. Persistent nausea and vomiting. Pain that will not go away with the medicines you were given here. Yellow skin or eye color (jaundice). Other new concerning symptoms. What can I do to help myself? Eat regular meals at least three times a day, to make the gallbladder empty before it gets too full. Avoid fried or fatty foods. Drink plenty of clear fluids. Take [id number] or prescribed pain medications as recommended by your provider. If you were given a prescription for medicine here today, be sure toread all of the information (including the package insert) that comes with your prescription. This will include important information about the medicine, its side effects, and any warnings that you need to know about. The pharmacist who fills the prescription can provide more information and answer questions you may have about the medicine. If you have questions or concerns that the pharmacist cannot address, please call or return to the Emergency Department. Remember that you can always come back to the clinic or go to Local Emergency Department if you are not able to see your regular provider in the amount of time listed above, if you get any new symptoms, or if there is anything that worries you. Discharge Instructions Kidney Stones Kidney stones are a common problem that can cause a lot of pain but fortunately are usually not dangerous. Kidney stones form in the kidney and then can cause a blockage (obstruction) of the flow of urine from the kidney which leads to pain. Most patients can manage kidney stones at home (without a hospital stay). However, sometimes your condition may be worse than it seemed at first, or may get worse with time. Most kidney stones will pass on their own, but occasionally stones may need to be removed by an urologist. Generally, every Emergency Department visit should have a follow-up clinic visit with either a primary or a specialty clinic/provider. Please follow-up as instructed by your emergency provider today. Return to the Emergency Department if: Your pain is not controlled despite the medications provided or recommended. You are vomiting (throwing up) and cannot keep fluids or medications down. You develop a fever (>100.4F). You feel much more ill or develop new symptoms. What can I do to help myself? Be sure to drink plenty of fluids. If instructed to do so, strain your urine (pee) with the urine strainer you were provided with today. Your stone may look like a grain of sand or a small pebble. Collect any stones in the cup provided and bring to your follow-up appointment. Staying active is good, and may help the stone to pass. You may do whatever you feel up to doing without restrictions. Treatment: Non-steroidal anti-inflammatory drugs (NSAIDs). This includes prescription medicines like Toradol (ketorolac) and non-prescription medicines like Advil ( ibuprofen) and Nuprin (ibuprofen) and Naproxen. These pain relievers are very effective for kidney stones. Nausea (sick to your stomach) medication. Nausea and vomiting are common with kidney stones, so your provider may send you home with medicine for this. Flomax (tamsulosin). This medicine is sometimes used for men with prostate problems, but also can help kidney stones to pass. Its effectiveness is controversial or questionable so it is prescribed in certain situations. This medicine can lower blood pressure, and you may feel faint/lightheaded, especially when you first stand up. Be sure to get up gradually, sit down if you feel faint, and avoid activity where feeling faint would be dangerous, such as climbing ladders. If you were given a prescription for medicine here today, be sure toread all of the information (including the package insert) that comes with your prescription. This will include important information about the medicine, its side effects, and any warnings that you need to know about. The pharmacist who fills the prescription can provide more information and answer questions you may have about the medicine. If you have questions or concerns that the pharmacist cannot address, please call or return to the Emergency Department. Remember that you can always come back to the Emergency Department if you are not able to see your regular provider in the amount of time listed above, if you get any new symptoms, or if there is anything that worries you. - Problem List & Annotations (1) Abdominal pain SNOMED Code(s): 99174124 Code(s): R10.9 - UNSPECIFIED ABDOMINAL PAIN Status: Acute Current Visit: No Qualifiers: Abdominal location: left upper quadrant Qualified Code(s): R10.12 - Left upper quadrant pain (2) Ureteric colic SNOMED Code(s): 87367534 Code(s): N23 - UNSPECIFIED RENAL COLIC Status: Acute Current Visit: Yes (3) Biliary colic symptom SNOMED Code(s): 75503800 Code(s): K80.50 - CALCULUS OF BILE DUCT W/O CHOLANGITIS OR CHOLECYST W/O OBST Status: Acute Current Visit: Yes (4) Fatty liver SNOMED Code(s): 788441449 Code(s): K76.0 - FATTY (CHANGE OF) LIVER, NOT ELSEWHERE CLASSIFIED Status: Acute Current Visit: Yes - My Orders Last 24 Hours: My Active Orders 01/24/19 18:40 Peripheral IV Care [RC] . DIRECTED Sodium Chloride 0.9% [Saline Flush] 10 ml FLUSH ASDIRECTED PRN Peripheral IV Insertion Adult [OM.PC] Routine 01/24/19 19:38 Ondansetron [Zofran] 4 mg IVPUSH Q4H PRN 01/24/19 19:45 Sodium Chloride 0.9% [Normal Saline] 1,000 ml IV ASDIRECTED 01/24/19 19:55 Strain Urine [RC] ASDIRECTED - Assessment/Plan Last 24 Hours: My Active Orders 01/24/19 18:40 Peripheral IV Care [RC] . DIRECTED Sodium Chloride 0.9% [Saline Flush] 10 ml FLUSH ASDIRECTED PRN Peripheral IV Insertion Adult [OM.PC] Routine 01/24/19 19:38 Ondansetron [Zofran] 4 mg IVPUSH Q4H PRN 01/24/19 19:45 Sodium Chloride 0.9% [Normal Saline] 1,000 ml IV ASDIRECTED 01/24/19 19:55 Strain Urine [RC] ASDIRECTED Plan: 1. Clear Liquid Diet x 48 hours then to bland advance as tolerated. Increase Fluid intake. Pain should resolve in 48-72 hours. 2. Prilosec 20mg daily to decreased stomach acid and allow stomach to heal. 3. Zofran 4mg ODT prn nausea to prevent vomiting and dehydration. 4. Ibuprofen or Naproxen (with food) every 6-8hours for inflammation, pain and swelling. 5. Tylenol (Acetaminophen) every 6-8hours for mild pain OR 6. Call PCP to discuss Biliary Colic gallstones/Gallbladder Polyp and possible renal colic causing your symptoms. 7. Strain urine if stones/sand present bring to clinic for analysis. 8. You may need further evaluation with a General Surgeon for possible removal of gallbladder if continue pain and concerns.
[2019-01-24] MEDS ORDERED: Ondansetron 4 MG/2 ML SDV IVPUSH PRN (19:38)
[2019-01-24] MEDS ORDERED: Ketorolac 30 MG/ML SDV IVPUSH ONE (19:38)
[2019-01-24] MEDS ORDERED: Sodium Chloride 0.9% 1,000 ML IV SCH (19:45)
[2019-01-24 20:10] VITALS: BP 130/73
== END 2019-01-24 21:32 | disposition home or self-care (01) ==
LOC: JP.ED 17:08
DX: N23 Unspecified renal colic (principal); K76.0 Fatty (change of) liver, not elsewhere classified; F41.9 Anxiety disorder, unspecified; Z88.0 Allergy status to penicillin; Z88.5 Allergy status to narcotic agent; Z88.8 Allergy status to other drugs, medicaments and biological substances; Z79.899 Other long term (current) drug therapy
CPT/HCPCS: 36415; 80053; 81001; 81025; 83690; 85025; 85379; 96361; 96374; 96375; 99283; J1885; J2405; J7030